=== PATIENT | female | born 1945 | race Hispanic/Latino ===

== ENCOUNTER → 2017-10-25 | Outpatient (CLI) | payer MEDICARE | END | disposition home or self-care (01) | LOC: OIH 09:17 | PROVIDERS: ATTEND Internal Medicine | DX: M54.6 Pain in thoracic spine (principal) | CPT/HCPCS: 72070 ==

== ENCOUNTER → 2017-12-26 | Outpatient (CLI) | payer MEDICARE | END | disposition home or self-care (01) | LOC: RAH 12:09 | PROVIDERS: ATTEND Internal Medicine | DX: I82.401 Acute embolism and thrombosis of unspecified deep veins of right lower extremity (principal); R60.0 Localized edema | CPT/HCPCS: 93971 ==

== ENCOUNTER → 2019-04-11 | Outpatient (CLI) | payer MEDICARE | END | disposition home or self-care (01) | LOC: OIH 10:39 | PROVIDERS: ATTEND Internal Medicine | DX: S43.82XA Sprain of other specified parts of left shoulder girdle, initial encounter (principal); M54.12 Radiculopathy, cervical region; M54.14 Radiculopathy, thoracic region; X58.XXXA Exposure to other specified factors, initial encounter; Y93.89 Activity, other specified; Y92.89 Other specified places as the place of occurrence of the external cause; Y99.8 Other external cause status | CPT/HCPCS: 72040; 72070; 73010 ==

== ENCOUNTER → 2019-08-27 | Outpatient (CLI) | payer MEDICARE | END | disposition home or self-care (01) | LOC: OIH 10:20 | PROVIDERS: ATTEND Internal Medicine | DX: M19.012 Primary osteoarthritis, left shoulder (principal); M85.88 Other specified disorders of bone density and structure, other site; M47.24 Other spondylosis with radiculopathy, thoracic region; Z90.49 Acquired absence of other specified parts of digestive tract | CPT/HCPCS: 72070; 73010 ==

== ENCOUNTER → 2020-12-18 | Outpatient (CLI) | payer MEDICARE | END | disposition home or self-care (01) | LOC: OIH 13:16 | PROVIDERS: ATTEND Internal Medicine | DX: M19.041 Primary osteoarthritis, right hand (principal); M19.042 Primary osteoarthritis, left hand; M19.072 Primary osteoarthritis, left ankle and foot; M77.51 Other enthesopathy of right foot and ankle | CPT/HCPCS: 73630 ==

== ENCOUNTER 2022-08-04 05:33 | Inpatient (IN) | payer MEDICARE ==
[2022-07-29 12:52] LABS: BASOPHILS % (AUTO) 1.9 % (0.0-5.0); EOSINOPHILS % (AUTO) 5.8 % (0.0-8.0); HEMATOCRIT 39.7 % (36-48); LYMPHOCYTES % (AUTO) 44.7 % (21.0-51.0); MEAN CORPUSCULAR HEMOGLOBIN 29.9 pg (27.0-33.0); MEAN CORPUSCULAR HGB CONC 31.2 g/dL (32.0-36.0); MEAN CORPUSCULAR VOLUME 95.7 fL (79-99); MONOCYTES % (AUTO) 15.2 % (3.0-13.0); NEUTROPHILS % (AUTO) 32.2 % (40.0-77.0); PLATELET COUNT (AUTO) 259 K/uL (130-400); RED BLOOD CELL COUNT(AUTO) 4.15 MIL/uL (4.00-5.50); RED CELL DISTRIBUTION WIDTH 13.7 % (11.0-15.5); WHITE BLOOD COUNT (AUTO) 4.1 K/uL (4.8-10.8)
[2022-07-29 13:14] LABS: CREATININE 0.6 mg/dL (0.5-1.5); POTASSIUM 3.4 mmol/L (3.5-5.1)
[2022-08-03 13:16] VITALS: BP 169/76
[~2022-08-04] VITALS: Ht 152.4 cm; Wt 76.7 kg
[2022-08-04] VITALS (24 sets, daily range): BP systolic 100–152; BP diastolic 48–76
[~2022-08-04 05:33] MED LIST: AEC81 PO; ALBU90AE2 IH; ALPR0.5T8 PO; AMLO-257 PO; ATOR10 PO; BIMA12.5OS OD; BUPIVACAINE/PF 0.25% 30ML VIAL IJ ONE; CARB-37 PO; CARV12.511 PO; CITA-107 PO; CYAN-35 PO; FLUT1AER IH; FOLIC ACID PO; LEVO25TA54 PO; LISI20TA24 PO; MULT-1258 PO; OMEP40CA21 PO
[2022-08-04] MEDS ORDERED: LACTATED RINGERS 1000ML 1,000 ML IV ONE (06:16)
[2022-08-04] MEDS ORDERED: CEFAZOLIN SODIUM 1 GM VIAL ONE (06:16)
[2022-08-04] MEDS ORDERED: PROPOFOL 10 MG/ML 20ML VIAL IV ONE (07:41)
[2022-08-04] MEDS ORDERED: MIDAZOLAM HCL 1 MG/ML 2ML VIAL ONE (07:41)
[2022-08-04] MEDS ORDERED: LIDOCAINE PF 100MG/5ML (2%) SYRINGE 5ML ONE (07:41)
[2022-08-04] MEDS ORDERED: ROCURONIUM 10MG/1ML SYR 10 MG/ML ML ONE ×3 (07:42→10:03)
[2022-08-04] MEDS ORDERED: FENTANYL CITRATE PF 50 MCG/1 ML 2ML VIAL ONE ×2 (07:42→10:43)
[2022-08-04] MEDS ORDERED: EPHEDRINE SULFATE 50 MG/ML AMPULE ONE (07:46)
[2022-08-04] MEDS ORDERED: CEFAZOLIN SODIUM 2 GM VIAL IVPB ONE (07:58)
[2022-08-04] MEDS ORDERED: PHENYLEPHRINE HCL 10 MG/ML 1ML VIAL IV ONE (09:03)
[2022-08-04] MEDS ORDERED: ONDANSETRON 4MG INJ ONE (09:33)
[2022-08-04] MEDS ORDERED: GLYCOPYRROLATE 1 MG/5 ML SYRINGE ONE (09:47)
[2022-08-04] MEDS ORDERED: NEOSTIGMINE 5MG/5ML SYR IV ONE (09:47)
[2022-08-04 10:33] LABS: HEMATOCRIT 32.6 % (36-48)
[2022-08-04] MEDS ORDERED: SUGAMMADEX SODIUM 200 MG/2 ML VIAL IV ONE (12:10)
[2022-08-04] MEDS ORDERED: MEPERIDINE-PF 25 MG/ML SYG ONE (12:55)
[2022-08-04] MEDS ORDERED: PROCHLORPERAZINE 10MG/2ML INJ IV PRN (13:30)
[2022-08-04] MEDS ORDERED: MORPHINE 4 MG SYG IVP PRN (13:30)
[2022-08-04] MEDS ORDERED: ONDANSETRON 4MG INJ IVP PRN (13:30)
[2022-08-04] MEDS ORDERED: ENOXAPARIN SODIUM 30 MG/0.3 ML SQ SCH (13:30)
[2022-08-04] MEDS: KETOROLAC 30MG VIAL (30MG/ML) IV PRN ×2 (14:16→21:04)
[2022-08-04] MEDS: 1/2NS+20MEQ KCL/1000ML 1,000 ML IV SCH ×2 (17:00→21:01)
[2022-08-04] MEDS: ***HM*** (Bimatoprost (Lumigan 0.01% Ophth Soln) 1 DROP) OD SCH (21:00)
[2022-08-04] MEDS: LEVODOPA PO SCH (21:00)
[2022-08-04] MEDS: ALPRAZOLAM 0.5 MG TABLET PO SCH (21:00)
[2022-08-04] MEDS: CARBIDOPA PO SCH (21:00)
[2022-08-04] MEDS: ALBUTEROL INHALER 90MCG/INH IH SCH (21:01)
[2022-08-04] MEDS: LISINOPRIL 20 MG TABLET PO SCH (21:02)
[2022-08-04] MEDS: ATORVASTATIN 10 MG TABLET PO SCH (21:02)
[2022-08-04] MEDS: CYANOCOBALAMIN (VITAMIN B-12) 1,000 MCG TABLET PO SCH (21:02)
[2022-08-04] MEDS: CITALOPRAM 20 MG TABLET PO SCH (21:03)
[2022-08-04] MEDS: CARVEDILOL 12.5 MG TABLET PO SCH (21:03)
[2022-08-04] MEDS: ENOXAPARIN SODIUM 30 MG/0.3 ML SQ SCH (21:07)
[2022-08-04] MEDS: HYDROCODONE/ACETAMINOPHEN 7.5/325 MG 15 ML UDCUP PO PRN (23:34)
[2022-08-05 00:23] VITALS: BP 140/69
[2022-08-05] MEDS: 1/2NS+20MEQ KCL/1000ML 1,000 ML IV SCH ×5 (02:48→20:01)
[2022-08-05 05:06] VITALS: BP 115/52
[2022-08-05] MEDS ORDERED: LEVOTHYROXINE 25 MCG TABLET ONE (06:21)
[2022-08-05] MEDS ORDERED: PANTOPRAZOLE 40 MG TAB DR ONE (06:22)
[2022-08-05] MEDS: PANTOPRAZOLE 40 MG TAB DR PO SCH (06:23)
[2022-08-05] MEDS: LEVOTHYROXINE 25 MCG TABLET PO SCH (06:23)
[2022-08-05 08:00] VITALS: BP 97/49
[2022-08-05] MEDS: AMLODIPINE 5 MG TAB PO SCH (09:02)
[2022-08-05] MEDS: ASPIRIN 81 MG EC TAB PO SCH (09:02)
[2022-08-05] MEDS: MULTIVITS,STRESS FORMULA/ZINC 1 TABLET PO SCH (09:03)
[2022-08-05] MEDS: FOLIC ACID 1 MG TABLET PO SCH (09:03)
[2022-08-05] MEDS: LISINOPRIL 20 MG TABLET PO SCH ×2 (09:04→19:59)
[2022-08-05] MEDS: ENOXAPARIN SODIUM 30 MG/0.3 ML SQ SCH ×2 (09:06→19:57)
[2022-08-05] MEDS: ALBUTEROL INHALER 90MCG/INH IH SCH ×4 (09:09→19:58)
[2022-08-05] MEDS ORDERED: DIATR MEGLU/DIATRIZOATE SODIUM 30 ML BOTTLE ONE (09:41)
[2022-08-05] MEDS: FLUTICASONE/VILANTEROL 1 EACH AER.POW.BA IH SCH (09:56)
[2022-08-05] MEDS: CARBIDOPA PO SCH ×3 (10:00→19:58)
[2022-08-05] MEDS: LEVODOPA PO SCH ×3 (10:00→19:58)
[2022-08-05 12:00] VITALS: BP 116/53
[2022-08-05 16:00] VITALS: BP 115/51
[2022-08-05] MEDS: KETOROLAC 30MG VIAL (30MG/ML) IV PRN (18:44)
[2022-08-05] MEDS: CITALOPRAM 20 MG TABLET PO SCH (19:57)
[2022-08-05] MEDS: CYANOCOBALAMIN (VITAMIN B-12) 1,000 MCG TABLET PO SCH (19:57)
[2022-08-05] MEDS: ATORVASTATIN 10 MG TABLET PO SCH (19:57)
[2022-08-05] MEDS: CARVEDILOL 12.5 MG TABLET PO SCH (19:58)
[2022-08-05] MEDS: ***HM*** (Bimatoprost (Lumigan 0.01% Ophth Soln) 1 DROP) OD SCH (19:58)
[2022-08-05 20:00] VITALS: BP 118/57
[2022-08-05] MEDS: ALPRAZOLAM 0.5 MG TABLET PO SCH (20:01)
[2022-08-05] MEDS: HYDROCODONE/ACETAMINOPHEN 7.5/325 MG 15 ML UDCUP PO PRN (23:11)
[2022-08-06] VITALS: BP 112/57
[2022-08-06 04:00] VITALS: BP 118/56
[2022-08-06] MEDS: PANTOPRAZOLE 40 MG TAB DR PO SCH (05:59)
[2022-08-06] MEDS: LEVOTHYROXINE 25 MCG TABLET PO SCH (06:00)
[2022-08-06 07:30] VITALS: BP 140/66
[2022-08-06] MEDS: MULTIVITS,STRESS FORMULA/ZINC 1 TABLET PO SCH (08:52)
[2022-08-06] MEDS: FOLIC ACID 1 MG TABLET PO SCH (08:53)
[2022-08-06] MEDS: AMLODIPINE 5 MG TAB PO SCH (08:53)
[2022-08-06] MEDS: ASPIRIN 81 MG EC TAB PO SCH (08:53)
[2022-08-06] MEDS: ENOXAPARIN SODIUM 30 MG/0.3 ML SQ SCH (08:54)
[2022-08-06] MEDS: ALBUTEROL INHALER 90MCG/INH IH SCH (08:54)
[2022-08-06] MEDS: LISINOPRIL 20 MG TABLET PO SCH (08:54)
[2022-08-06] MEDS: FLUTICASONE/VILANTEROL 1 EACH AER.POW.BA IH SCH (08:55)
[2022-08-06 11:10] VITALS: BP 144/68
== END 2022-08-06 14:00 | disposition home or self-care (01) | DRG 328 ==
LOC: DAH 05:33 → DAHIP 05:34 → 4DH 14:11
PROVIDERS: ADMIT Surgery; ATTEND Surgery
PROC: 0BUT4JZ Supplement Diaphragm with Synthetic Substitute, Percutaneous Endoscopic Approach (ICD-10-PCS; 2022-08-04)
PROC: 0DQ64ZZ Repair Stomach, Percutaneous Endoscopic Approach (ICD-10-PCS; 2022-08-04)
PROC: 0DNU0ZZ Release Omentum, Open Approach (ICD-10-PCS; 2022-08-04)
PROC: 0DJ08ZZ Inspection of Upper Intestinal Tract, Via Natural or Artificial Opening Endoscopic (ICD-10-PCS; principal; 2022-08-04 07:57)
DX: K44.0 Diaphragmatic hernia with obstruction, without gangrene (principal); R13.10 Dysphagia, unspecified; Z20.822 Contact with and (suspected) exposure to COVID-19; F41.9 Anxiety disorder, unspecified; I10 Essential (primary) hypertension; J44.9 Chronic obstructive pulmonary disease, unspecified; M06.9 Rheumatoid arthritis, unspecified; K66.0 Peritoneal adhesions (postprocedural) (postinfection)
CPT/HCPCS: 36415; 74240; 80048; 82948; 85014; 85018; 85025; 86850; 86900; 86901; 87426; 93005; 97039; A4344; G0378; J0690; J1650; J1885; J2001; J2175; J2250; J2370; J2405; J2704; J2710; J3010; J3480; J3490; J7030; J7120; Q9963

== ENCOUNTER 2024-05-10 21:49 | Emergency (ER) | payer OTHER, MEDICARE ==
[~2024-05-10] VITALS: Ht 152.4 cm; Wt 122.5 kg
[~2024-05-10 21:49] MED LIST changes: -ALBU90AE2 IH; +ALBU90AE3 IH; -BUPIVACAINE/PF 0.25% 30ML VIAL IJ ONE
[2024-05-11 01:38] LABS: BASOPHILS # (AUTO) 0.07 K/uL (0.00-0.20); BASOPHILS % (AUTO) 1.1 % (0.0-5.0); EOSINOPHILS # (AUTO) 0.26 K/uL (0.00-0.70); EOSINOPHILS % (AUTO) 4.1 % (0.0-8.0); HEMATOCRIT 40.9 % (36-48); IMMATURE GRANULOCYTE ABSOLUTE 0.02 K/uL (0-1); LYMPHOCYTES # (AUTO) 2.5 K/uL (1.0-4.8); LYMPHOCYTES % (AUTO) 39.4 % (21.0-51.0); MEAN CORPUSCULAR HEMOGLOBIN 30.9 pg (27.0-33.0); MEAN CORPUSCULAR VOLUME 93.6 fL (79-99); MONOCYTES # (AUTO) 0.8 K/uL (0.1-1.0); NEUTROPHILS # (AUTO) 2.7 K/uL (1.8-7.7); NEUTROPHILS % (AUTO) 42.1 % (40.0-77.0); PLATELET COUNT (AUTO) 225 K/uL (130-400); RED BLOOD CELL COUNT(AUTO) 4.37 MIL/uL (4.00-5.50); RED CELL DISTRIBUTION WIDTH 13.1 % (11.0-15.5); WHITE BLOOD COUNT (AUTO) 6.3 K/uL (4.8-10.8)
[2024-05-11 01:52] LABS: CREATININE 0.7 mg/dL (0.5-1.0); POTASSIUM 3.8 mmol/L (3.5-5.1)
[2024-05-11 01:53] LABS: INR 0.96 (0.85-1.15); PROTHROMBIN TIME 10.4 SEC (9.6-11.6)
[2024-05-11 01:55] LABS: PARTIAL THROMBOPLASTIN TIME 25.4 SEC (26.3-35.5)
[2024-05-11 01:56] LABS: ALBUMIN 3.5 g/dL (3.5-5.0); BILIRUBIN,TOTAL 0.2 mg/dL (0.2-1.0); TOTAL PROTEIN, SERUM 7.2 g/dL (6.0-8.3)
[2024-05-11] MEDS: 0.9%NACL 1000ML 1,000 ML IV ONE (03:28)
[2024-05-11] MEDS: PANTOPRAZOLE 40 MG/VIAL IVP ONE (03:28)
[2024-05-11 03:56] LABS: APPEARANCE,URINE CLEAR (CLEAR); BILIRUBIN,URINE NEGATIVE (NEGATIVE); COLOR,URINE YELLOW (YELLOW); GLUCOSE, URINE (UA) NEGATIVE (NEGATIVE); KETONES,URINE 5 mg/dL (NEGATIVE); LEUKOCYTE ESTERASE ,URINE SMALL Leu/uL (NEGATIVE); NITRATE,URINE POSITIVE (NEGATIVE); OCCULT BLOOD,URINE NEGATIVE (NEGATIVE); PROTEIN,URINE NEGATIVE (NEGATIVE); UROBILINOGEN,URINE 0.2 mg/dL (0.2-1.0)
[2024-05-11 03:57] LABS: ADD UA MICROSCOPIC YES
[2024-05-11 04:04] LABS: BACTERIA,URINE FEW /HPF (None Seen); MUCUS,URINE MOD LPF (None Seen); SQUAMOUS EPITHELIAL CELL,UR RARE /HPF (0-2); WBC,URINE 51-100 /HPF (0-1)
[2024-05-11] MEDS ORDERED: NITR100C4 PO (04:27)
[2024-05-11 04:43] VITALS: BP 135/66; PULSE 80; RESP 18; O2SAT 95
[2024-05-11] MEDS: cefTRIAXone 1G VIAL IVPB ONE (04:46)
== END 2024-05-11 05:11 | disposition home or self-care (01) ==
LOC: EDH 21:49
DX: N39.0 Urinary tract infection, site not specified (principal); K92.2 Gastrointestinal hemorrhage, unspecified; K92.1 Melena; E11.9 Type 2 diabetes mellitus without complications; I10 Essential (primary) hypertension; Z79.51 Long term (current) use of inhaled steroids; Z79.82 Long term (current) use of aspirin; Z79.899 Other long term (current) drug therapy; Z90.710 Acquired absence of both cervix and uterus; Z90.49 Acquired absence of other specified parts of digestive tract
CPT/HCPCS: 99285; 71045; 82270; 84484; 80053; 83690; 85025; 85610; 85730; 86850; 86900; 86901; 87086 ×2; 87186; 81001; 36415; 93005; 96374; 96375; J7030; J0696; J2470

== ENCOUNTER 2024-10-02 12:54 | Observation (INO) | payer OTHER, MEDICARE ==
[~2024-10-02] VITALS: Ht 154.9 cm; Wt 78.5 kg
[~2024-10-02 12:54] MED LIST changes: +NITR100C4 PO
--- NOTE | 2024-10-02 13:17 | EKG ---
[facility] Test Date: 2024-10-02 Test Time: 13:14:58 Pat Name: FAVIOLA BRINK Department: EDH Room: ED Gender: F Scientific Linguist: [id number] : 1945 Requested By: SAMIRA LEE Order Number: [id number] Reading MD: Esther Aguilar Measurements Intervals [place] Rate: 69 P: 67 FL: 151 QRS: 57 QRSD: 80 T: 59 QT: 435 QTc: 468 Interpretive Statements Sinus rhythm Ventricular premature complex Compared to ECG 05/10/2024 22:02:28 Ventricular premature complex(es) now present Electronically Signed On 10-03-2024 17:09:28 WATER SERVER by Esther Aguilar Please click the below link to view image of tracing.
--- NOTE | 2024-10-02 13:58 | HMCIMG ---
CHEST 1VW REASON: SYNCOPE COMPARISON: 05/10/2024 FINDINGS: Single view of the chest was obtained. Lungs are clear. Heart size is normal. There is no pulmonary vascular congestion. Mediastinum and bony thorax appear unremarkable. IMPRESSION: 1. Normal single view chest x-ray.
--- NOTE | 2024-10-02 13:58 | HMCIMG ---
Exam: NONCONTRAST CT BRAIN REASON: syncope. COMPARISON: None. TECHNIQUE: Images are obtained from vertex to the skull base. The exam was performed without IV contrast. FINDINGS: There is normal appearing brain parenchyma. There are no focal mass lesions. There is is no evidence of intracranial hemorrhage or acute stroke. Ventricles and sulci appear normal. Posterior fossa and brainstem structures are unremarkable. Paranasal sinuses and remaining extracranial soft tissues appear normal as well. IMPRESSION: 1. Normal noncontrast CT brain. CT was performed with one or more following dose reduction techniques: automated exposure control, adjustment of the mA and kv according to patient's size, or use of a iterative reconstruction technique.
[2024-10-02 14:00] LABS: BASOPHILS # (AUTO) 0.05 K/uL (0.00-0.20); BASOPHILS % (AUTO) 0.5 % (0.0-5.0); EOSINOPHILS # (AUTO) 0.12 K/uL (0.00-0.70); EOSINOPHILS % (AUTO) 1.1 % (0.0-8.0); HEMATOCRIT 41.4 % (36-48); IMMATURE GRANULOCYTE ABSOLUTE 0.06 K/uL (0-1); LYMPHOCYTES # (AUTO) 1.3 K/uL (1.0-4.8); LYMPHOCYTES % (AUTO) 12.2 % (21.0-51.0); MEAN CORPUSCULAR HEMOGLOBIN 30.8 pg (27.0-33.0); MEAN CORPUSCULAR HGB CONC 32.9 g/dL (32.0-36.0); MEAN CORPUSCULAR VOLUME 93.9 fL (79-99); MONOCYTES # (AUTO) 0.9 K/uL (0.1-1.0); MONOCYTES % (AUTO) 8.5 % (3.0-13.0); NEUTROPHILS # (AUTO) 8.1 K/uL (1.8-7.7); NEUTROPHILS % (AUTO) 77.1 % (40.0-77.0); PLATELET COUNT (AUTO) 203 K/uL (130-400); RED BLOOD CELL COUNT(AUTO) 4.41 MIL/uL (4.00-5.50); RED CELL DISTRIBUTION WIDTH 12.6 % (11.0-15.5); WHITE BLOOD COUNT (AUTO) 10.5 K/uL (4.8-10.8)
[2024-10-02 14:17] LABS: ALBUMIN 3.1 g/dL (3.5-5.0); BILIRUBIN,TOTAL 0.5 mg/dL (0.2-1.0); CREATININE 0.9 mg/dL (0.5-1.0); POTASSIUM 3.7 mmol/L (3.5-5.1); TOTAL PROTEIN, SERUM 6.6 g/dL (6.0-8.3)
--- NOTE | 2024-10-02 14:52 | ERN ---
ED Note History of Present Illness Stated Complaint: SYNCOPE Chief Complaint: Syncope Time Seen by MD: 12:59 Dictation: 78-year-old female she comes to the ED. Because she had this generalized weakness. And also presyncope. Then EMS said come. It is all that she was pal e and then had low blood pressure. But this got better with fluids. No focal weaknesses said for a moment there she did have chest pain earlier. But no chest pain shortness of breath weakness or dizziness no Allergies: Coded Allergies: No Known Drug Allergies (Unverified Allergy, Unknown, 08/03/22) Home Meds Active Scripts Nitrofurantoin Monohyd/M-Cryst (Macrobid 100 mg Capsule) 100 Mg Capsule, 100 MG PO BID, #14 CAP Prov:CHRISTINE GALDAMEZ MD 05/11/24 Reported Medications [Folic Acid] No Conflict Check, 2 MG PO DAILY 08/03/22 Cyanocobalamin (Vitamin B-12) (Vitamin B-12) 1,000 Mcg Capsule, 1000 MCG PO HS, CAP 08/03/22 Multivits-Min/FA/Lycopene/Lut (Centrum Silver Tablet) 1 Each Tablet, 1 EACH PO DAILY, TAB 08/03/22 Atorvastatin Calcium (LIPITOR) 10 Mg Tab, 10 MG PO HS, TAB 08/03/22 Aspirin (ASPIRIN 81 MG ECTAB) 81 Mg Ectab, 81 MG PO DAILY, TAB.EC 08/03/22 Carvedilol (Carvedilol) 12.5 Mg Tablet, 12.5 MG PO HS, TAB 08/03/22 Citalopram Hydrobromide (Citalopram HBr) 20 Mg Tablet, 20 MG PO HS, TAB 08/03/22 Lisinopril (Lisinopril) 20 Mg Tablet, 20 MG PO BID, TAB 08/03/22 Carbidopa/Levodopa (Carbidopa-Levo 10-100 mg Odt) 1 Each Tab.rapdis, 1 EACH PO TID, TAB 08/03/22 Levothyroxine Sodium (Levothyroxine Sodium) 25 Mcg Tablet, 1.5 TAB PO ACBKFST, T AB 08/03/22 Omeprazole (Omeprazole) 40 Mg Capsule.dr, 40 MG PO DAILY, CAP 08/03/22 Fluticasone/Vilanterol (Breo Ellipta 100-25 Mcg INH) 1 Each Aer.pow.ba, 1 EACH IH DAILY 08/03/22 Albuterol Sulfate (Proair Digihaler) 90 Mcg Aer.pw.bas, 1 PUFF IH QID 08/03/22 Bimatoprost (Lumigan 0.01% Ophth Soln) 20 Drop/Ml Opsol, 1 DROP OD HS, DROP 08/03/22 Alprazolam (Alprazolam) 0.5 Mg Tablet, 0.5 MG PO HS, TAB 08/03/22 Amlodipine Besylate (Amlodipine Besylate) 5 Mg Tablet, 5 MG PO DAILY, TAB 08/03/22 Past Medical History Past Medical History: Diabetes-Type II, Hypertension, Other Additional Past Medical Hx: HYPOKALEMIA, THYROID Surgical History: Unknown Surgical History Other: NECK,BACK, HERNIA History: Not Applicable Review of System Dictation Constitutional: Negative for fever,chills, and weight loss Eyes: Negative for injury, pain,redness, and discharge ENT: Negative for injury,pain or swelling Cardiovascular: Negative for chest pain, palpitations, and edema Respiratory: Negative for shortness of breath, cough, and wheezing, Abdomen/GI: Negative for abdominal pain, nausea, vomiting, diarrhea, and const ipation Back: Negative for injury and pain : Negative for injury, bleeding and discharge MS/Extremity: Negative for injury and deformity Skin: Negative for rash, and discoloration Neuro: Negative for headache, weakness, numbness, tingling, and seizure Psych: Negative for suicide ideation, homicidal ideation, and hallucinations Initial Vital Sign VS Vital Signs Date Time Temp Pulse Resp B/P (MAP) Pulse Ox O2 Delivery O2 Flow Rate FiO2 10/02/24 12:59 96.6 74 17 102/66 97 Room Air 0 10/02/24 14:10 21 Physical Exam Dictation General: awake, alert, NAD Head/Face: Normocephalic, atraumatic Eyes: PERRL, EOMI, vision at baseline ENT: oral cavity clear, TMs clear, no signs of infection Neck: Trachea midline, supple, no nuchal rigidity Cardiovascular: RRR, normal S1/S2, No MRGs, no JVD Respiratory: CTAB, no respiratory distress, No rales or wheezes Abdomen: Soft, non-tender, non-distended, normal bowel sounds, no guarding or rebound. Skin: Warm, dry, normal turgor, no rash MS/Extremity: Pulses equal, no cyanosis, neurovascular intact, FROM Neuro: COAx4, GCS 15, strength 5/5, CN 2-12 intact, normal cerebellar exam, normal gait, Psych: Normal behavior, mood, and affect normal NIH 0 cerebellar testing within normal limits Results (Laboratory/Radiology) Laboratory/Radiology Laboratory Tests Test 10/02/24 13:43 White Blood Count 10.5 K/uL (4.8-10.8) Red Blood Count 4.41 MIL/uL (4.00-5.50) Hemoglobin 13.6 g/dL (12.0-16.0) Hematocrit 41.4 % (36-48) Mean Corpuscular Volume 93.9 fL (79-99) Mean Corpuscular Hemoglobin 30.8 pg (27.0-33.0) Mean Corpuscular Hemoglobin Concent 32.9 g/dL (32.0-36.0) Red Cell Distribution Width 12.6 % (11.0-15.5) Platelet Count 203 K/uL (130-400) Mean Platelet Volume 11.3 fL (7.5-10.5) H Immature Granulocyte % (Auto) 0.6 % (0-1) Neutrophils (%) (Auto) 77.1 % (40.0-77.0) H Lymphocytes (%) (Auto) 12.2 % (21.0-51.0) L Monocytes (%) (Auto) 8.5 % (3.0-13.0) Eosinophils (%) (Auto) 1.1 % (0.0-8.0) Basophils (%) (Auto) 0.5 % (0.0-5.0) Neutrophils # (Auto) 8.1 K/uL (1.8-7.7) H Lymphocytes # (Auto) 1.3 K/uL (1.0-4.8) Monocytes # (Auto) 0.9 K/uL (0.1-1.0) Eosinophils # (Auto) 0.12 K/uL (0.00-0.70) Basophils # (Auto) 0.05 K/uL (0.00-0.20) Absolute Immature Granulocyte (auto 0.06 K/uL (0-1) Nucleated Red Blood Cells 0.0 % (0.0-0.19) Sodium Level 142 mmol/L (136-145) Potassium Level 3.7 mmol/L (3.5-5.1) Chloride Level 105 mmol/L (101-111) Carbon Dioxide Level 31 mmol/L (21-32) Blood Urea Nitrogen 11 mg/dL (7-18) Creatinine 0.9 mg/dL (0.5-1.0) Glomerular Filtration Rate Calc 66 mL/min (>90) Random Glucose 184 mg/dL (70-105) H Total Calcium 8.3 mg/dL (8.5-10.1) L Total Bilirubin 0.5 mg/dL (0.2-1.0) Aspartate Amino Transf (AST/SGOT) 32 U/L (10-37) Alanine Aminotransferase (ALT/SGPT) 22 U/L (12-78) Alkaline Phosphatase 85 U/L (50-136) Troponin I High Sensitivity 11 ng/L (4-50) Total Protein 6.6 g/dL (6.0-8.3) Albumin 3.1 g/dL (3.5-5.0) L ED Course ED Course Orders Procedure Category Date Status Time Vital Signs Per CPOE 10/02/24 Transmitted Routine 13:04 Oxygen By Nc/Pulse Ox CPOE 10/02/24 Transmitted 13:04 Iv Insertion CPOE 10/02/24 Transmitted 13:04 Cbc With Differential LAB 10/02/24 Complete 13:04 Chest 1vw RAD 10/02/24 Resulted 13:04 12 Lead Ekg Tracing- EKG 10/02/24 Complete Technical 13:04 Comprehensive LAB 10/02/24 Complete Metabolic Panel 13:04 Troponin I High LAB 10/02/24 Complete Sensitivity 13:04 Urinalysis Profile LAB 10/02/24 In Process 13:05 Ct Head/Brain W/O CT 10/02/24 Resulted Contrast 13:05 Vital Signs Date Time Temp Pulse Resp B/P (MAP) Pulse Ox O2 Delivery O2 Flow Rate FiO2 10/02/24 14:10 92 16 123/61 97 Room Air* 0 21 10/02/24 12:59 96.6 74 17 102/66 97 Room Air 0 Medical Decision Making MDM MDM: Differential diagnosis: Likely vasovagal. But given patient's cardiac risk factors she does have Dr. Mckay stone banker. We will admit for observation. And cardiologic evaluation consultation. She was in agreement with his I and family were no other questions complaints concerns at this time. Rationale: Tests considered and ordered secondary to shared decision making include: labs, ECG and radiology Previous outside records reviewed: Old ER visits. Risk of complication and/or morbidity or mortality of patient management: None Medications-Per medication reconciliation Need for hospitalization: Patient does meet criteria for hospitalization. Need for emergency major/minor surgery: No There are no social concerns with this patient. Prescription drug management Prescriptions will include symptomatic care Patient's prior external medical records from other ER visits were reviewed by me as indicated. Prior testing and results from previous visits were reviewed. Prior tests were taken into account with medical decision making and resource utilization, independent historian/historians were used to obtain complete medical history. I independently interpreted the test that were performed, results were reviewed by me and considered findings on radiology if ordered. Medical management and examination interpretation discussions were had by me with other qualified healthcare professionals as indicated for the patient's care. DX & DISP Disposition: Inpatient Departure Impression: Primary Impression: Pre-syncope Condition: Stable Referrals: YURIDIA SAUCEDO MD (PCP) SAMIRA LEE MD Oct 02, 2024 14:52
[2024-10-02 15:00] LABS: APPEARANCE,URINE CLOUDY (CLEAR); BILIRUBIN,URINE NEGATIVE (NEGATIVE); COLOR,URINE YELLOW (YELLOW); GLUCOSE, URINE (UA) NEGATIVE (NEGATIVE); KETONES,URINE NEGATIVE (NEGATIVE); LEUKOCYTE ESTERASE ,URINE 75 Leu/uL (NEGATIVE); NITRATE,URINE 1+ (NEGATIVE); OCCULT BLOOD,URINE NEGATIVE (NEGATIVE); PH,URINE 6.5 (5.0-8.0); PROTEIN,URINE 70 mg/dL (NEGATIVE); UROBILINOGEN,URINE 0.2 mg/dL (0.2-1.0)
[2024-10-02 15:21] LABS: ADD UA MICROSCOPIC YES
[2024-10-02 15:22] LABS: BACTERIA,URINE RARE /HPF (None Seen); MUCUS,URINE MOD LPF (None Seen); SQUAMOUS EPITHELIAL CELL,UR RARE /HPF (0-2); UNCLASSIFIED CRYSTAL 2 /HPF (None Seen); YEAST,URINE BUDDING FEW /HPF (None Seen)
--- NOTE | 2024-10-02 15:31 | NUR ---
PENDING SON TO BRING HOME MEDICATIONS FROM HOUSE.
[2024-10-02] MEDS: 0.9%NACL 1000ML 1,000 ML IV SCH (16:20)
[2024-10-02] MEDS ORDERED: LEFL20TA22 PO (18:48)
--- NOTE | 2024-10-02 20:54 | NUR ---
REPORTS SHE WAS AT A [facility] WHEN SHE SUDDENLY FELT FAINT AND WAS ASSISTED TO A CHAIR BY HER PROVIDER. DENIES LOC
--- NOTE | 2024-10-02 22:36 | HP ---
HISTORY AND PHYSICAL NOTE DATE OF CONSULTATION: 10/02/24 REASON FOR CONSULTATION: Syncope HISTORY OF PRESENT ILLNESS: 78-year-old female she comes to the ED. Because she had this generalized weakness. And also presyncope. Then EMS said come. It is all that she was pale and then had low blood pressure. But this got better with fluids. No focal weaknesses said for a moment there she did have chest pain earlier. But no chest pain shortness of breath weakness or dizziness no Allergies: Coded Allergies: No Known Drug Allergies (Unverified Allergy, Unknown, 08/03/22) Home Meds Active Scripts Nitrofurantoin Monohyd/M-Cryst (Macrobid 100 mg Capsule) 100 Mg Capsule, 100 MG PO BID, #14 CAP Prov:CHRISTINE GALDAMEZ MD 05/11/24 Reported Medications [Folic Acid] No Conflict Check, 2 MG PO DAILY 08/03/22 Cyanocobalamin (Vitamin B-12) (Vitamin B-12) 1,000 Mcg Capsule, 1000 MCG PO HS, CAP 08/03/22 Multivits-Min/FA/Lycopene/Lut (Centrum Silver Tablet) 1 Each Tablet, 1 EACH PO DAILY, TAB 08/03/22 Atorvastatin Calcium (LIPITOR) 10 Mg Tab, 10 MG PO HS, TAB 08/03/22 Aspirin (ASPIRIN 81 MG ECTAB) 81 Mg Ectab, 81 MG PO DAILY, TAB.EC 08/03/22 Carvedilol (Carvedilol) 12.5 Mg Tablet, 12.5 MG PO HS, TAB 08/03/22 Citalopram Hydrobromide (Citalopram HBr) 20 Mg Tablet, 20 MG PO HS, TAB 08/03/22 Lisinopril (Lisinopril) 20 Mg Tablet, 20 MG PO BID, TAB 08/03/22 Carbidopa/Levodopa (Carbidopa-Levo 10-100 mg Odt) 1 Each Tab.rapdis, 1 EACH PO TID, TAB 08/03/22 Levothyroxine Sodium (Levothyroxine Sodium) 25 Mcg Tablet, 1.5 TAB PO ACBKFST, TAB 08/03/22 Omeprazole (Omeprazole) 40 Mg Capsule.dr, 40 MG PO DAILY, CAP 08/03/22 Fluticasone/Vilanterol (Breo Ellipta 100-25 Mcg INH) 1 Each Aer.pow.ba, 1 EACH IH DAILY 08/03/22 Albuterol Sulfate (Proair Digihaler) 90 Mcg Aer.pw.bas, 1 PUFF IH QID 08/03/22 Bimatoprost (Lumigan 0.01% Ophth Soln) 20 Drop/Ml Opsol, 1 DROP OD HS, DROP 08/03/22 Alprazolam (Alprazolam) 0.5 Mg Tablet, 0.5 MG PO HS, TAB 08/03/22 Amlodipine Besylate (Amlodipine Besylate) 5 Mg Tablet, 5 MG PO DAILY, TAB 08/03/22 Past Medical History Past Medical History: Diabetes-Type II, Hypertension, Other Additional Past Medical Hx: HYPOKALEMIA, THYROID Surgical History: Unknown Surgical History Other: NECK,BACK, HERNIA History: Not Applicable Review of System Dictation Constitutional: Negative for fever,chills, and weight loss Eyes: Negative for injury, pain,redness, and discharge ENT: Negative for injury,pain or swelling Cardiovascular: Negative for chest pain, palpitations, and edema Respiratory: Negative for shortness of breath, cough, and wheezing, Abdomen/GI: Negative for abdominal pain, nausea, vomiting, diarrhea, and constipation Back: Negative for injury and pain : Negative for injury, bleeding and discharge MS/Extremity: Negative for injury and deformity Skin: Negative for rash, and discoloration Neuro: Negative for headache, weakness, numbness, tingling, and seizure Psych: Negative for suicide ideation, homicidal ideation, and hallucinations Initial Vital Sign VS Vital Signs Date Time Temp Pulse Resp B/P (MAP) Pulse Ox O2 Delivery O2 Flow Rate FiO2 10/02/24 12:59 96.6 74 17 102/66 97 Room Air 0 10/02/24 14:10 21 ALLERGIES: Coded Allergies: No Known Drug Allergies (Unverified Allergy, Unknown, 08/03/22) HOME MEDS: Reported Medications Leflunomide (Leflunomide) 20 Mg Tablet, 20 MG PO DAILY, TAB 10/02/24 [Folic Acid] No Conflict Check, 2 MG PO DAILY 08/03/22 Cyanocobalamin (Vitamin B-12) (Vitamin B-12) 1,000 Mcg Capsule, 1000 MCG PO HS, CAP 08/03/22 Multivits-Min/FA/Lycopene/Lut (Centrum Silver Tablet) 1 Each Tablet, 1 EACH PO DAILY, TAB 08/03/22 Atorvastatin Calcium (LIPITOR) 10 Mg Tab, 10 MG PO HS, TAB 08/03/22 Aspirin (ASPIRIN 81 MG ECTAB) 81 Mg Ectab, 81 MG PO DAILY, TAB.EC 08/03/22 Carvedilol (Carvedilol) 12.5 Mg Tablet, 25 MG PO BID, TAB 08/03/22 Citalopram Hydrobromide (Citalopram HBr) 20 Mg Tablet, 20 MG PO HS, TAB 08/03/22 Lisinopril (Lisinopril) 20 Mg Tablet, 20 MG PO BID, TAB 08/03/22 Carbidopa/Levodopa (Carbidopa-Levo 10-100 mg Odt) 1 Each Tab.rapdis, 1 EACH PO TID, TAB 08/03/22 Levothyroxine Sodium (Levothyroxine Sodium) 25 Mcg Tablet, 1.5 TAB PO ACBKFST, TAB 08/03/22 Omeprazole (Omeprazole) 40 Mg Capsule.dr, 40 MG PO DAILY, CAP 08/03/22 Amlodipine Besylate (Amlodipine Besylate) 5 Mg Tablet, 5 MG PO DAILY, TAB 08/03/22 Discontinued Reported Medications Fluticasone/Vilanterol (Breo Ellipta 100-25 Mcg INH) 1 Each Aer.pow.ba, 1 EACH IH DAILY 08/03/22 Albuterol Sulfate (Proair Digihaler) 90 Mcg Aer.pw.bas, 1 PUFF IH QID 08/03/22 Bimatoprost (Lumigan 0.01% [facility]) 20 Drop/Ml Opsol, 1 DROP OD HS, DROP 08/03/22 Alprazolam (Alprazolam) 0.5 Mg Tablet, 0.5 MG PO HS, TAB 08/03/22 Discontinued Scripts Nitrofurantoin Monohyd/M-Cryst (Macrobid 100 mg Capsule) 100 Mg Capsule, 100 MG PO BID, #14 CAP Prov:CHRISTINE GALDAMEZ MD 05/11/24 INPATIENT MEDS: Current Medications Medications Dose Ordered Sig/Kaity Start Time Stop Time Status Last Admin Sodium Chloride 1,000 ml @ 75 mls/hr [id number] 10/02/24 15:30 11/01/24 15:29 10/02/24 16:20 VITAL SIGNS Vital Signs Date Time Temp Pulse Resp B/P (MAP) Pulse Ox O2 Delivery O2 Flow Rate FiO2 10/02/24 20:52 98.6 72 16 112/56 98 Room Air* 0 21 10/02/24 18:35 96.6 84 16 114/84 97 Room Air* 0 21 10/02/24 16:15 71 14 95/58 97 Room Air* 0 21 10/02/24 14:10 92 16 123/61 97 Room Air* 0 21 10/02/24 12:59 96.6 74 17 102/66 97 Room Air 0 PHYSICAL EXAM Physical Exam Dictation General: awake, alert, NAD Head/Face: Normocephalic, atraumatic Eyes: PERRL, EOMI, vision at baseline ENT: oral cavity clear, TMs clear, no signs of infection Neck: Trachea midline, supple, no nuchal rigidity Cardiovascular: RRR, normal S1/S2, No MRGs, no JVD Respiratory: CTAB, no respiratory distress, No rales or wheezes Abdomen: Soft, non-tender, non-distended, normal bowel sounds, no guarding or rebound. Skin: Warm, dry, normal turgor, no rash MS/Extremity: Pulses equal, no cyanosis, neurovascular intact, FROM Neuro: COAx4, GCS 15, strength 5/5, CN 2-12 intact, normal cerebellar exam, normal gait, Psych: Normal behavior, mood, and affect normal NIH 0 cerebellar testing within normal limits LABORATORY RESULTS Laboratory Tests 10/02/24 13:43: White Blood Count 10.5, Red Blood Count 4.41, Hemoglobin 13.6, Hematocrit 41.4, Mean Corpuscular Volume 93.9, Mean Corpuscular Hemoglobin 30.8, Mean Corpuscular Hemoglobin Concent 32.9, Red Cell Distribution Width 12.6, Platelet Count 203, Mean Platelet Volume 11.3, Immature Granulocyte % (Auto) 0.6, Neutrophils (%) (Auto) 77.1, Lymphocytes (%) (Auto) 12.2, Monocytes (%) (Auto) 8.5, Eosinophils (%) (Auto) 1.1, Basophils (%) (Auto) 0.5, Neutrophils # (Auto) 8.1, Lymphocytes # (Auto) 1.3, Monocytes # (Auto) 0.9, Eosinophils # (Auto) 0.12, Basophils # (Auto) 0.05, Absolute Immature Granulocyte (auto 0.06, Nucleated Red Blood Cells 0.0, Sodium Level 142, Potassium Level 3.7, Chloride Level 105, Carbon Dioxide Level 31, Blood Urea Nitrogen 11, Creatinine 0.9, Glomerular Filtration Rate Calc 66, Random Glucose 184, Total Calcium 8.3, Total Bilirubin 0.5, Aspartate Amino Transf (AST/SGOT) 32, Alanine Aminotransferase (ALT/SGPT) 22, Alkaline Phosphatase 85, Troponin I High Sensitivity 11, Total Protein 6.6, Albumin 3.1 10/02/24 13:53: Urine Color YELLOW, Urine Appearance CLOUDY, Urine pH 6.5, Urine Specific Notus 1.018, Urine Protein 70, Urine Glucose (UA) NEGATIVE, Urine Ketones NEGATIVE, Urine Occult Blood NEGATIVE, Urine Nitrate 1+, Urine Bilirubin NEGATIVE, Urine Urobilinogen 0.2, Urine Leukocyte Esterase 75, Urine RBC 2-5, Urine WBC 11-25, Urine Squamous Epithelial Cells RARE, Urine Other Crystals (Auto) 2, Urine Bacteria RARE, Urine Hyaline Casts 11-25, Urine Yeast FEW 10/02/24 15:50: Troponin I High Sensitivity 8.2, Total Creatine Kinase 53 PROBLEM LIST: (1) Pre-syncope ICD Codes: R55 - Syncope and collapse PLAN Hydrate and monitor YURIDIA SAUCEDO MD Oct 02, 2024 22:36
--- NOTE | 2024-10-03 09:30 | EKG ---
[facility] Test Date: 2024-10-03 Test Time: 06:50:08 Pat Name: FAVIOLA BRINK Department: EDHIP Room: ED 12 Gender: F Set Decorator: [id number] : 1945 Requested By: LORI BENEDICT Order Number: [id number] Reading MD: Esther Aguilar Measurements Intervals [place] Rate: 82 P: 56 VT: 153 QRS: 64 QRSD: 83 T: 46 QT: 404 QTc: 473 Interpretive Statements Sinus rhythm Ventricular premature complex Compared to ECG 10/02/2024 13:14:58 No significant changes Electronically Signed On 10-03-2024 17:10:07 LINE CONSTRUCTION SUPERVISOR by Esther Aguilar Please click the below link to view image of tracing.
[2024-10-03] MEDS: cefTRIAXone 1G VIAL IVPB ONE (09:58)
--- NOTE | 2024-10-03 14:47 | NUR ---
DCP: HOME Pt lives at home alone. Her son Carloz Colbert [phone] lives on same property and assist as needed. Pt has provider 28hrs a week thru [employer] to assist her with ADLS, home management and meal prep. Pt has a cane, grab bars and a shower chair. No HH or HD services. PCP is Cary Delgado and uses [facility] for rx. Pt denies need for SNF or referral, [place]. Addendum: 10/03/24 at 1447 by MEL BOLAÑOS SS Amended: Links added.
--- NOTE | 2024-10-03 15:48 | NUR ---
CALLED DR. BENEDICT SPOKE TO HIM, REMIND HIM OF CONSULT STATES HE WILL COME IN LATER TODAY. [id number]
--- NOTE | 2024-10-03 17:10 | HMCSR ---
APPROVED REPORT EXAM: Two-dimensional and M-mode echocardiogram with Doppler and color Doppler. INDICATION ICD: Syncope R55 2D Dimensions RVDd2.6 cmLVEF(%)83.5 (>50%)LVED Vol(simp.)57.0 mL IVSd0.7 (0.7-1.1cm)FS(%)51 %LVES Vol(simp.)11.3 mL LVDd3.5 (3.8-5.6cm)LA (2D)2.8 (1.6-4.0cm)LVEF(%, simp.)80 % PWd1.1 (0.7-1.1cm)Ao Root(2D)2.6 (2.0-3.7cm)LA ESV INDEX (4CH)20.50 mL/m2 IVSs0.8 cmLVOT diam2.2 (1.8-2.4cm) LVDs1.7 (2.5-4.0cm) PWs1.5 cm M-Mode Dimensions EPSS0.8 cm LA (MM)4.4 (1.6-4.0cm) Ao Root(MM)3.5 (2.0-3.7cm) Aortic Valve AoV VTI0.2 mAo Mean GR3.0 mmHgLVOT VTI0.16 m ALEX (VMAX)2.6 cm2AVA (VTI) 2.6 cm2 Mitral Valve MV E Vmax37.8 cm/sDECEL Bspi240 ms MV A Vmax72.8 cm/sP 1/2 T52 ms E/A ratio0.5MVA (PHT)4.3 cm2 TDI E/E' Medial5.4E/E' Lateral5.3 Medial E' Peak V7.00 cm/sLateral E' Peak V7.20 cm/s Pulmonary Valve PV VTI0.25 mPV Mean GR5 mmHg Tricuspid Valve RAP (EST) 3 mmHgRVSP3.0 mmHg Left Ventricle Left ventricular cavity size is normal. There is normal left ventricular wall thickness. LVEF is >70% . Stage I diastolic dysfunction. Right Ventricle The right ventricle is normal size. The right ventricular systolic function is normal. Atria The left atrium size is normal. The right atrium size is normal. Aortic Valve The aortic valve is normal in structure and function. No aortic regurgitation is present. There is no aortic valvular stenosis. Mitral Valve The mitral valve is normal in structure and function. There is no mitral valve regurgitation noted. T here is no mitral valve stenosis. Tricuspid Valve The tricuspid valve leaflets appear normal. There is no tricuspid valve regurgitation noted. Pulmonic Valve Pulmonic valve is not well visualized. There is no pulmonic valvular regurgitation. Great Vessels The aortic root is normal in size. The IVC is normal in size and collapses >50% with inspiration. Pericardium No pericardial effusion. Other Information Quality : Technically difficult study due to body habitus. Conclusion LVEF is >70%. Stage I diastolic dysfunction. The left atrium size is normal. No aortic regurgitation is present. There is no aortic valvular stenosis. There is no mitral valve regurgitation noted. No pericardial effusion.
--- NOTE | 2024-10-03 17:28 | NUR ---
1722 DR BENEDICT CAME TO ED 12 TO TALK WITH PT, WILL CLEAR FOR HOME, PT STABLE. WILL NOTIFY DR. SAUCEDO.
[2024-10-03] MEDS: cloPIDOgrel 75MG TAB PO ONE (17:49)
[2024-10-03 17:51] VITALS: BP 169/58; PULSE 89; RESP 15; TEMP 98.6; O2SAT 97
--- NOTE | 2024-10-03 17:59 | NUR ---
PT CLEARED TO DISCHARGE HOME BY DR. SAUCEDO, PT TO WALK INTO HIS OFFICE TOMORROW FOR ANTIBIOTIC RX. PT STABLE NO DISTRESS VITALS WNL PT GIVEN ONE RX IN HAND FOR PLAVIX WILL START TODAY. PT IV D/C CATHETER INTACT PT DRIVEN HOME BY SON.
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
--- NOTE | 2024-10-03 22:25 | DS ---
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): [] PROCEDURE(S)/TREATMENT(S): None [] PROBLEM(S): [] FOLLOW-UP TEST(S): [Holter] DISCHARGE INSTRUCTIONS: [Follow up in 1-2 days] Home Meds Reported Medications Leflunomide (Leflunomide) 20 Mg Tablet, 20 MG PO DAILY, TAB 10/02/24 [Folic Acid] No Conflict Check, 2 MG PO DAILY 08/03/22 Cyanocobalamin (Vitamin B-12) (Vitamin B-12) 1,000 Mcg Capsule, 1000 MCG PO HS, CAP 08/03/22 Multivits-Min/FA/Lycopene/Lut (Centrum Silver Tablet) 1 Each Tablet, 1 EACH PO DAILY, TAB 08/03/22 Atorvastatin Calcium (LIPITOR) 10 Mg Tab, 10 MG PO HS, TAB 08/03/22 Aspirin (ASPIRIN 81 MG ECTAB) 81 Mg Ectab, 81 MG PO DAILY, TAB.EC 08/03/22 Carvedilol (Carvedilol) 12.5 Mg Tablet, 25 MG PO BID, TAB 08/03/22 Citalopram Hydrobromide (Citalopram HBr) 20 Mg Tablet, 20 MG PO HS, TAB 08/03/22 Lisinopril (Lisinopril) 20 Mg Tablet, 20 MG PO BID, TAB 08/03/22 Carbidopa/Levodopa (Carbidopa-Levo 10-100 mg Odt) 1 Each Tab.rapdis, 1 EACH PO TID, TAB 08/03/22 Levothyroxine Sodium (Levothyroxine Sodium) 25 Mcg Tablet, 1.5 TAB PO ACBKFST, TAB 08/03/22 Omeprazole (Omeprazole) 40 Mg Capsule.dr, 40 MG PO DAILY, CAP 08/03/22 Amlodipine Besylate (Amlodipine Besylate) 5 Mg Tablet, 5 MG PO DAILY, TAB 08/03/22 Discontinued Reported Medications Fluticasone/Vilanterol (Breo Ellipta 100-25 Mcg INH) 1 Each Aer.pow.ba, 1 EACH IH DAILY 08/03/22 Albuterol Sulfate (Proair Digihaler) 90 Mcg Aer.pw.bas, 1 PUFF IH QID 08/03/22 Bimatoprost (Lumigan 0.01% Ophth Soln) 20 Drop/Ml Opsol, 1 DROP OD HS, DROP 08/03/22 Alprazolam (Alprazolam) 0.5 Mg Tablet, 0.5 MG PO HS, TAB 08/03/22 Discontinued Scripts Nitrofurantoin Monohyd/M-Cryst (Macrobid 100 mg Capsule) 100 Mg Capsule, 100 MG PO BID, #14 CAP Prov:CHRISTINE GALDAMEZ MD 05/11/24 YURIDIA SAUCEDO MD Oct 03, 2024 22:25
== END 2024-10-03 18:53 | disposition home or self-care (01) ==
LOC: EDH 12:54 → EDHIP 15:20
PROVIDERS: ADMIT Internal Medicine; ATTEND Internal Medicine
DX: R55 Syncope and collapse (principal); R53.1 Weakness; E11.9 Type 2 diabetes mellitus without complications; I10 Essential (primary) hypertension; G89.29 Other chronic pain; Z79.899 Other long term (current) drug therapy
CPT/HCPCS: 96361; 99285; 82550; 84484 ×2; 80053; 85025; 87086 ×2; 87186; 81001; 36415; 71045; 70450; 93306; 93005 ×2; 96374; G0378 ×26; J7030; J0696